=== PATIENT | male | born 1960 | race Caucasian/White ===

== ENCOUNTER 2017-09-27 07:06 | Emergency (ER) | payer OTHER ==
[~2017-09-27] VITALS: Ht 172.7 cm; Wt 72.6 kg
[2017-09-27 07:16] VITALS: BP 144/75
[2017-09-27 07:50] LABS: BASO % 0.4 % (0.0-1.0); EOS % 0.3 % (1.0-4.0); HEMATOCRIT 42.1 % (42.0-52.0); HEMOGLOBIN 14.2 g/dl (14.0-18.0); LYMPH # 1.5 10*3/uL (1.3-4.4); LYMPH % 15.1 % (27.0-41.0); MEAN CELL VOLUME 93.1 fl (80.0-94.0); MEAN CORPUSCULAR HGB 31.4 pg (27.0-31.0); MEAN CORPUSCULAR HGB CONC 33.7 g/dl (33.0-37.0); MEAN PLATELET VOLUME 9.3 fl (9.6-12.3); MONO # 0.5 10*3/uL (0.1-1.0); MONO % 5.3 % (3.0-9.0); NEUT # 8.1 10*3/uL (2.3-7.9); NEUT % 78.6 % (47.0-73.0); PLATELET COUNT AUTOMATED 317 10*3/uL (130-400); RED BLOOD COUNT 4.52 10*6/uL (4.50-5.90); RED CELL DISTRI WIDTH 13.2 % (0-14.5); WHITE BLOOD COUNT 10.2 10*3/uL (4.8-10.8)
[2017-09-27 08:03] LABS: ALBUMIN 3.8 gm/dl (3.1-4.5); ALKALINE PHOSPHATASE 107 U/L (45-117); BUN 10 mg/dl (7-24); CHLORIDE 105 mmol/L (98-107); CREATININE 0.74 mg/dL (0.70-1.30); POTASSIUM 4.1 mmol/L (3.5-5.1); SGOT/AST 41 IU/L (3-35); SGPT/ALT 86 U/L (12-78); SODIUM 137 mmol/L (136-145)
[2017-09-27] MEDS ORDERED: ZOFRAN ODT4 MG SL (13:37)
[2017-09-27] MEDS ORDERED: GOOD NEIGHBOR M25 M1 PO (13:37)
== END 2017-09-27 13:44 | disposition home or self-care (01) ==
LOC: ED 07:06
PROVIDERS: Family Medicine
DX: H83.09 Labyrinthitis, unspecified ear (principal); F10.10 Alcohol abuse, uncomplicated; M54.2 Cervicalgia; R51 Headache; R20.2 Paresthesia of skin

== ENCOUNTER → 2017-10-06 | Outpatient (CLI) | payer OTHER ==
[~2017-10-06] MED LIST: GOOD NEIGHBOR M25 M1 PO; ZOFRAN ODT4 MG SL
== END | disposition home or self-care (01) ==
LOC: RAD 12:41
DX: M43.17 Spondylolisthesis, lumbosacral region (principal); M48.07 Spinal stenosis, lumbosacral region; M43.8X5 Other specified deforming dorsopathies, thoracolumbar region

== ENCOUNTER → 2017-10-10 | Outpatient (CLI) | payer OTHER | END | disposition home or self-care (01) | LOC: CT 03:44 | DX: R20.2 Paresthesia of skin (principal); R20.0 Anesthesia of skin ==

== ENCOUNTER → 2017-10-18 | Outpatient (CLI) | payer OTHER | LOC: US 13:21 | DX: I65.23 Occlusion and stenosis of bilateral carotid arteries (principal); N20.0 Calculus of kidney; E78.5 Hyperlipidemia, unspecified; R20.0 Anesthesia of skin; R26.81 Unsteadiness on feet ==